=== PATIENT | female | born 2000 | race Caucasian/White ===

== ENCOUNTER 2024-03-07 06:22 | Inpatient (IN) | payer OTHER ==
[2024-03-07] VITALS (56 sets, daily range): BP systolic 111–160; BP diastolic 52–89; PULSE 76–148; TEMP 97.2–101
[~2024-03-07] VITALS: Ht 162.6 cm; Wt 127.7 kg
--- NOTE | 2024-03-07 06:40 | NUR ---
PATIENT AMBULATES ON TO UNIT. PATIENT DENIES LEAKING OF FLUID OR BLEEDING. PATIENT DENIES ANY CONTRACTIONS. PATIENT REPORTS NORMAL MOVEMENT. EFM AND TOCO INITIATED. SPO2 MONITOR INITIATED.
[2024-03-07] MEDS ORDERED: LR & Oxytocin 500 ML IV SCH (06:45)
[2024-03-07] MEDS ORDERED: LR 1,000 ML IV SCH (06:45)
--- NOTE | 2024-03-07 07:36 | NUR ---
NOTIFIED THAT WE HAVE BEEN UNABLE TO START AN IV AND PATIENT HAD JUST VOMITTED AND GOT IN THE SHOWER AND IS JUST NOW BACK IN BED AND WILL GET AN IV JANIYA. DR. FINCH AT BEDSIDE. FHR TRACING REVIEWED. PLAN OF CARE UPDATED. SVE /-2. DR. FINCH WILL RETURN AFTER SURGERY TO [facility].
[2024-03-07] MEDS ORDERED: PRENATAL TABLET PO (08:19)
[2024-03-07 08:20] LABS: BASO % 0.2 % (0.0-2.0); EOS # 0.4 K/mm3 (0.0-0.7); EOS % 2.9 % (0.0-4.0); GRAN # 8.9 K/mm3 (1.4-6.5); GRAN % 74.3 % (42.2-75.2); HEMOGLOBIN 11.5 g/dl (12.5-16.0); LYMPH # 1.6 K/mm3 (1.2-3.4); LYMPH % 13.7 % (20.0-51.0); MEAN CELL VOLUME 86 fl (80.0-100.0); MEAN CORPUSCULAR HEMOGLOBIN 28 pg (27-31); MEAN CORPUSCULAR HGB CONC 33 g/dl (33.0-37.0); MEAN PLATELET VOLUME 14.2 fl (7.4-10.4); MONO % 8.1 % (1.7-9.3); PLATELET COUNT 135 K/mm3 (130-400); REDCELL DISTRIBUTION WIDTH-CV 13.6 % (11.5-14.5)
[2024-03-07] MEDS ORDERED: PRILOSEC10 MG PO (08:20)
[2024-03-07 08:23] LABS: HEMATOCRIT 35.2 % (37.0-47.0)
--- NOTE | 2024-03-07 08:40 | NUR ---
AT [facility]. [facility] TRACING REVIEWED. PLAN OF CARE UPDATED. SVE @ 0841 /-2. AROM @ 0842. CLEAR FLUID. DR. FINCH NOTIFIED THAT PATIENT NOW HAS AN IV AND THAT PITOCIN HAS BEEN STARTED.
--- NOTE | 2024-03-07 09:18 | NUR ---
DR. FINCH AT [facility]. FHR TRACING REVIEWED. PLAN OF CARE UPDATED. SVE @ 0919 . IUPC PLACED AT 0920, FSE PLACED AT [address] FINCH DUE TO DIFFICULTY TRACING WITH EFM AND TOCO DUE TO MATERNAL HABITUS.
[2024-03-07] MEDS ORDERED: ROPivacaine PF 0.2% 200 ML IV ONE (10:14)
--- NOTE | 2024-03-07 10:20 | NUR ---
SALAS JAVIER AT BEDSIDE. PROCEDURE EXPLAINED AND CONSENT OBTAINED. PATIENT SETUP FOR EPIDURAL. 1027 SINGLE SHOT ADMINISTERED. 1030 PATIENT ASSISTED BACK TO LEFT LATERAL POSITION IN BED.
[2024-03-07] MEDS ORDERED: diphenhydrAMINE 50 MG/ML 1 ML VIAL IV PRN (10:30)
[2024-03-07] MEDS ORDERED: Naloxone 0.4 MG/ML VIAL IV PRN ×2 (10:30→23:15)
[2024-03-07] MEDS ORDERED: ePHEDrine 50 MG/10 ML VIAL IV PRN (10:30)
[2024-03-07] MEDS ORDERED: Ondansetron 4 MG/2 ML VIAL IV PRN (10:30)
[2024-03-07] MEDS ORDERED: diphenhydrAMINE 25 MG CAP PO PRN (10:30)
--- NOTE | 2024-03-07 12:28 | NUR ---
WHILE PROVIDER AT BEDSIDE UTERINE TACHYSYSTOLE DISCUSSED. NO NEW ORDERS AT THIS TIME.
--- NOTE | 2024-03-07 12:28 | NUR ---
AT BEDSIDE. FHR TRACING REVIEWED.PLAN OF CARE UPDATED. MARYANNRodolfo @ 1229 /2.
--- NOTE | 2024-03-07 12:48 | NUR ---
AT BEDSIDE. FHR TRACING REVIEWED. PLAN OF CARE UPDATED. MARYANNRodolfo @ 1249 /2.
--- NOTE | 2024-03-07 12:50 | NUR ---
DECREASE IN PITOCIN DUE TO UTERINE TACHYSYSTOLE.
--- NOTE | 2024-03-07 13:14 | NUR ---
PITOCIN DECREASE DUE TO CONTINUED UTERINE TACHYSYSTOLE
--- NOTE | 2024-03-07 14:15 | NUR ---
PITOCIN DECREASED DUE TO CONTINUED UTERINE TACHYSYSTOLE. FHR TRACING REMAINS CATEGORY 1.
--- NOTE | 2024-03-07 14:18 | NUR ---
AT BEDSIDE. FHR TRACING REVIEWED. UTERINE TACHYSYSTOLE AND PITOCIN DECREASE DISCUSSED. PROVIDER TO BE ON UNIT AND MONITOR FOR AWHILE. SVE @ 8241 2. PLAN OF CARE UPDATED.
--- NOTE | 2024-03-07 14:55 | NUR ---
PROVIDER ON UNIT AND ORDERS GIVEN TO START TITRATING UP ON PITOCIN AGAIN.
--- NOTE | 2024-03-07 15:51 | NUR ---
AT BEDSIDE. FHR TRACING REVIEWED. PLAN OF CARE UPDATED. SVE @ 1552 1, BLOODY SHOW PRESENT.
--- NOTE | 2024-03-07 16:10 | NUR ---
ON UNIT. NOTIFIED OF UTERINE TACHYSYSTOLE. NO NEW ORDERS AT THIS TIME.
--- NOTE | 2024-03-07 16:30 | NUR ---
PROVIDER ON UNIT MONITORING STRIP AND AWARE OF UTERINE ACTIVITY. PROVIDER NOTIFIED OF 6 MIN PERIOD OF CONSISTIENT UTERINE ACTIVITY. NO NEW ORDERS AT THIS TIME
--- NOTE | 2024-03-07 16:46 | NUR ---
AT BEDSIDE. FHR TRACING REVIEWED. FHR BORDERLINE TACHYCARDIA DISCUSSED. PLAN OF CARE UPDATED. EFREM @ 4307 . PATIENT ORAL TEMPERATURE TAKEN AND WNL.
--- NOTE | 2024-03-07 16:50 | NUR ---
BORDERLINE TACHYCARDIA DISCUSSED WITH PROVIDER AT THIS TIME. NO NEW ORDERS AT THIS TIME.
[2024-03-07] MEDS ORDERED: Acetaminophen 500 MG TAB PO PRN ×2 (18:00→23:15)
--- NOTE | 2024-03-07 18:28 | NUR ---
Repositioned to hands and knees, as noted, patient reports having a lot of back labor prior to epidural placement. That, coupled with unorganized uterine contraction pattern, is suggestive of malpresentation of head.
--- NOTE | 2024-03-07 18:47 | NUR ---
here for repeat SVE. Verbalizes no cervical change in 2 hours. Updated to Tylenol has just been given 15 minutes ago, ampicillin has been administered, gentamicin infusing now. Reviews strip at bedside, discussed continued tachycardia. Patient repositioned from hands and knees to right lateral following repeat SVE. Left leg up in stirrup.
--- NOTE | 2024-03-07 18:55 | NUR ---
Repeat oral temp 97.9. Taken axillary to follow, result of 99.2. Will continue to monitor.
--- NOTE | 2024-03-07 19:30 | NUR ---
Temp rechecked at this time, very differing results. Oral temp 97.8, axillary temp 101.
--- NOTE | 2024-03-07 19:30 | NUR ---
Repositioned left lateral with right leg up in stirrup.
--- NOTE | 2024-03-07 19:48 | NUR ---
Repeat SVE by . Rate of pitocin decreased to 6mU/min per verbal order @ 1950. Repositioned to right lateral following SVE.
--- NOTE | 2024-03-07 19:50 | NUR ---
Note 3 minute prolonged decel noted, moderate variability throughout. in-house, aware.
--- NOTE | 2024-03-07 19:58 | NUR ---
Repositioned back to left lateral with right leg up in stirrup.
[2024-03-07] MEDS ORDERED: Tranexamic Acid 1,000 MG in NS 100 ML IV ONE (20:15)
--- NOTE | 2024-03-07 20:30 | NUR ---
in for repeat SVE. Repositioned shivam's following SVE.
[2024-03-07] MEDS ORDERED: traZODone 50 MG TAB PO PRN (21:00)
--- NOTE | 2024-03-07 21:07 | NUR ---
Repositioned from throne's to left lateral with right leg up in stirrup.
--- NOTE | 2024-03-07 21:07 | NUR ---
Repositioned left lateral with right leg up in stirrup.
--- NOTE | 2024-03-07 21:36 | NUR ---
First push attempt with instruction.
--- NOTE | 2024-03-07 21:58 | NUR ---
out of room at this time, while this telegraphic typewriter operator continues pushing efforts with patient.
--- NOTE | 2024-03-07 22:00 | NUR ---
Closed knee pushing began with instruction.
--- NOTE | 2024-03-07 22:15 | NUR ---
back in room to assess pushing efforts. Discusses with patient variable decelerations and possible intervention of using vacuum assist. Risks explained to patient. Patient and spouse verbalize understanding, agreeable to vacuum assist if necessary.
--- NOTE | 2024-03-07 22:20 | NUR ---
Pushing in lithotomy resumed, using handle bars on bed for leverage.
--- NOTE | 2024-03-07 22:45 | NUR ---
2242-Vacuum placed by , no pressure applied until patient begins contraction. Once contractions begins, pumps pressure of vacuum to green. Pressure through 2 push attempts in same contraction. 2243-First pop off noted. 2245-Pressure applied to green on vacuum by . 2nd pop-off noted after pulling with 2 push attempts in same contraction. 2245-Pushes through a contraction with no vac assist.
--- NOTE | 2024-03-07 22:50 | NUR ---
After 5 minutes of continued pushing efforts with no vac assist, of viable female by @ 821. Per mom's request no skin to skin until cleaned off. Infant passed off to Katie Snider RN, nursery nurse after cord doubly clamped and cut by . 2253-Spontaneous vaginal delivery of placenta by . Pit bolus begun @ 333mU/min immediately following. Verbal order received to send placenta to pathology. Cord gases obtained, sent to RT for analysis. Note, in-house @ 1620, and remains in-house, monitoring heart rate strip, until after delivery.
--- NOTE | 2024-03-07 22:55 | NUR ---
repairs left and right vaginal wall laceration with 2-[address]-1. Perineum intact per assessment.
--- NOTE | 2024-03-07 23:00 | NUR ---
Epidural pump turned off at this time.
[2024-03-07] MEDS ORDERED: Phenylephrine/Mineral Oil/Petrolatum 57 GM TUBE RC PRN (23:15)
[2024-03-07] MEDS ORDERED: oxyCODONE 5 MG TAB PO PRN (23:15)
[2024-03-07] MEDS ORDERED: Loratadine 10 MG TAB PO PRN (23:15)
[2024-03-07] MEDS ORDERED: Magnes Hydrox (MOM) 80 MG/ML 30 ML CUP PO PRN (23:15)
[2024-03-07] MEDS ORDERED: Measles/Mumps/Rubella Virus Vaccine Live w Diluent 0.5 ML VIAL SQ SCH (23:15)
[2024-03-07] MEDS ORDERED: Mag/Al Hydrox/Simeth Susp 30 ML CUP PO PRN (23:15)
[2024-03-07] MEDS ORDERED: Ibuprofen 800 MG TAB PO SCH (23:15)
[2024-03-07] MEDS ORDERED: Witch Hazel 50% Pads Bulk TUB TP PRN (23:15)
[2024-03-08] VITALS (9 sets, daily range): BP systolic 120–147; BP diastolic 46–84; PULSE 70–100; TEMP 97.5–98.7
[2024-03-08] MEDS ORDERED: Sennosides/Docusate 8.6-50 MG TAB PO SCH (08:00)
--- NOTE | 2024-03-08 10:18 | NUR ---
Initial visit attempt; Screening Consult in progress. Central Station Operator left a card offering "Congratulations and God's blessings for the of their daughter and information regarding the availability of Spiritual Care for their family."
[2024-03-08] MEDS ORDERED: MOTRIN 800800 MG/TAB PO (11:50)
[2024-03-09 07:31] VITALS: BP 115/76; PULSE 90; TEMP 97.7
--- NOTE | 2024-03-09 13:00 | NUR ---
PT GIVEN DISCHARGE EDUCATION. ALL QUESTIONS ASKED AND ANSWERED. THE PATIENT HAS GATHERED ALL BELONGINGS AND ALL PERSONAL BELONGINGS ARE ACCOUNTED FOR. THE PATIENT VERBALIZED UNDERSTANDING OF INSTRUCTIONS. THE PATIENT ORDERED LUNCH AND REQUESTS TO STAY IN THE ROOM UNTIL THEY FINISH. NO CONCERNS AT THIS TIME.
== END 2024-03-09 14:10 | disposition home or self-care (01) | DRG 805 ==
LOC: OB 06:22 → LDR 06:22 → OB 03-08 01:10
PROVIDERS: ADMIT Obstetrics & Gynecology
PROC: 10D07Z6 Extraction of Products of Conception, Vacuum, Via Natural or Artificial Opening (ICD-10-PCS; principal; 2024-03-07)
PROC: 0KQM0ZZ Repair Perineum Muscle, Open Approach (ICD-10-PCS; 2024-03-07)
PROC: 3E033VJ Introduction of Other Hormone into Peripheral Vein, Percutaneous Approach (ICD-10-PCS; 2024-03-07)
PROC: 10907ZC Drainage of Amniotic Fluid, Therapeutic from Products of Conception, Via Natural or Artificial Opening (ICD-10-PCS; 2024-03-07)
DX: O48.0 Post-term pregnancy (principal); O41.1230 Chorioamnionitis, third trimester, not applicable or unspecified; Z37.0 Single live birth; Z3A.40 40 weeks gestation of pregnancy; O99.214 Obesity complicating childbirth; O76 Abnormality in fetal heart rate and rhythm complicating labor and delivery; O75.81 Maternal exhaustion complicating labor and delivery; O77.0 Labor and delivery complicated by meconium in amniotic fluid; O70.1 Second degree perineal laceration during delivery
CPT/HCPCS: J0290; J1580; J2405; J2590; J2795; J7120